=== PATIENT | male | born 1970 | race Caucasian/White ===

== ENCOUNTER 2016-11-04 05:59 | Day surgery (SDC) | payer OTHER ==
[2016-11-04] VITALS (7 sets, daily range): BP systolic 107–137; BP diastolic 61–70
[~2016-11-04] VITALS: Ht 167.6 cm; Wt 80.3 kg
[~2016-11-04 05:59] MED LIST: GINK40TA3 PO; GLUC15002 PO; MAGN250T2 PO; NAPR250T2 PO
[2016-11-04] MEDS ORDERED: CLINDAMYCIN 600 MG in APPROPRIATE DILUENT 1 EA IV ONE (06:15)
[2016-11-04] MEDS ORDERED: LR 1,000 ML IV SCH ×3 (06:15→11:15)
[2016-11-04] MEDS ORDERED: fentaNYL 100 MCG/2 ML INJECTION (J3010) As Ordered ONE ×2 (06:49→10:53)
[2016-11-04] MEDS ORDERED: MIDAZOLAM INJ 2 MG/2 ML VIAL (J2250) As Ordered ONE ×2 (06:49→07:11)
[2016-11-04] MEDS ORDERED: LIDOCAINE 1% MDV INJ 50 ML VIAL As Ordered ONE ×2 (07:10→07:36)
[2016-11-04] MEDS ORDERED: EPINEPHrine 1MG/ML INJ 30ML MD-VIAL As Ordered ONE (07:10)
[2016-11-04] MEDS ORDERED: fentaNYL 250 MCG/5 ML INJECTION (J3010) As Ordered ONE (07:12)
[2016-11-04] MEDS ORDERED: PROPOFOL 200 MG/20 ML VIAL As Ordered ONE ×5 (07:12→10:05)
[2016-11-04] MEDS ORDERED: ROCURONIUM BROMIDE 50 MG/5 ML VIAL As Ordered ONE (07:15)
[2016-11-04] MEDS ORDERED: LIDOCAINE 2% INJ 100 MG/5 ML SDV (FOR ANES.) As Ordered ONE (07:15)
[2016-11-04] MEDS ORDERED: LIDOCAINE 1% MDV 20ML VIAL As Ordered ONE (07:36)
[2016-11-04] MEDS ORDERED: dexameTHASONE 4 MG/ML 1ML VIAL (J1100) As Ordered ONE ×2 (07:54)
[2016-11-04] MEDS ORDERED: METOCLOPRAMIDE INJ 10MG/2ML VIAL (J2765) As Ordered ONE (07:54)
[2016-11-04] MEDS ORDERED: GLYCOPYRROLATE INJ 0.2 MG/ML 2 ML VIAL As Ordered ONE ×2 (08:10)
[2016-11-04] MEDS ORDERED: ONDANSETRON 4MG/2ML VIAL (J2405) As Ordered ONE (08:10)
[2016-11-04] MEDS ORDERED: NEOSTIGMINE 1MG/ML 5 ML SYRINGE (J2710) As Ordered ONE (08:11)
[2016-11-04] MEDS ORDERED: EPINEPHrine INJ 1 MG/ML 1ML VIAL/AMP XX ONE (08:16)
[2016-11-04] MEDS ORDERED: HYDROmorphone HCL 2 MG/ML 1ML VIAL (J1170) As Ordered ONE (08:43)
[2016-11-04] MEDS: fentaNYL 100 MCG/2 ML INJECTION (J3010) IV PRN ×9 (10:55→12:15)
[2016-11-04] MEDS ORDERED: ONDANSETRON 4MG/2ML VIAL (J2405) IV PRN (11:15)
[2016-11-04] MEDS ORDERED: MORPHINE 4 MG/ML 1ML SYRINGE IV PRN (11:15)
[2016-11-04] MEDS ORDERED: PERCOCET 5MG/325MG TAB PO PRN (11:15)
[2016-11-04] MEDS ORDERED: METOCLOPRAMIDE INJ 10MG/2ML VIAL (J2765) IV PRN (11:15)
[2016-11-04] MEDS ORDERED: MEPERIDINE INJ 25 MG/ML VIAL (J2175) IV PRN (11:15)
[2016-11-04] MEDS: PERCOCET 5MG/325MG TAB PO PRN ×4 (11:50→20:45)
--- NOTE | 2016-11-04 12:33 | RO ---
DATE OF PROCEDURE: 11/04/2016 PREOPERATIVE DIAGNOSES: 1. Left shoulder SLAP tear. 2. Left shoulder posterior inferior glenohumeral osteoarthritis. POSTOPERATIVE DIAGNOSES: 1. Left shoulder SLAP tear. 2. Left shoulder posterior inferior glenohumeral osteoarthritis. PROCEDURE: 1. Left shoulder arthroscopic SLAP tear debridement. 2. Left shoulder arthroscopic biceps tenotomy. 3. Left shoulder open sub pectoralis tenodesis. 4. Left shoulder arthroscopic posterior inferior labral repair. SURGEON: Mariela Sims MD HUMID SYSTEM OPERATOR: Mr. Kendrick Gore ANESTHESIA: General endotracheal tube anesthesia. COMPLICATIONS: Were none. FINDINGS: He had a significant degenerative unstable SLAP tear with biceps tendonitis. In addition, there was some full thickness areas of chondromalacia at the inferior and posterior aspect of the glenoid articular surface as well as the humeral head. 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 Exam under anesthesia revealed he actually had a remarkably stable shoulder with full range of motion. DESCRIPTION OF PROCEDURE: Antibiotics were given intravenously preoperatively, then a successful general endotracheal tube anesthetic was established. He was placed in the semi beach chair position and a spider shoulder giraldo was utilized. Exam under anesthesia was then performed. His left upper extremity was then prepped and draped in the usual sterile fashion. Then, after appropriate time-out, a routine diagnostic arthroscopy was performed through a posterior portal. We established an anterior superior rotator interval cannula and explored the joint with findings as noted above. Multiple photographs were taken for documentation of the pathology. Once a thorough assessment had been performed, I debrided the SLAP tear superiorly and then decided on a biceps tenotomy and planned for later open sub pectoralis tenodesis. The posterior inferior labrum was debrided. There were several pieces of loose articular cartilage fragments within the joint, which were debrided away as well back to a good stable rim. There was some upper border subscapularis tendonitis and partial tearing noted as well. This was debrided with a shaver. At this point, I established the anterior superior cannula using a switching stick and the dilator, and then I established an anterior inferior cannula using a spinal needle to localize, then a switching stick and then a 7 mm Twist-In cannula over the dilator. The visualization portal was then changed to anterior superior cannula providing excellent visualization from superiorly to look at the posterior inferior area of the glenoid clearly identifying the significant degenerative labral tearing and separation with the chondromalacia of the posterior inferior aspect of the glenoid. I used the shaver from both front cannulas and the posterior cannulas to debride back the labrum to a good stable rim and debrided the loose pieces of articular cartilage as best as possible. I then was able to get our small elevator and rasp underneath the labrum posteriorly and inferiorly to freshen the surface for later repair and good healing response for planned advancement of the Seema lesion and the labrum and capsule up on to the face of the inferior and posterior glenoid to help unweight this area of the full thickness cartilage loss. Once that had been done, then I established a percutaneous portal for anchor placement at about the 6-o'clock position and placed a suture tack in that position, and then I used the suture lasso to do a capsular tuck into the labrum with 25 degree tight to the right suture lasso. This first suture anchor was then tied using a [place] slider knot, and this was backed up by several half stitches. Then, the remaining limb of para sutures off that inferior anchor was passed in a similar fashion right next to that, just a little bit more superior and posterior, now advancing over towards the 5:30 position, and that was secured in a similar fashion. A second anchor was then placed at about the 3:30 or 4-o'clock position through the percutaneous portal once again, and then both limbs of that suture anchor were tied using [place] slider knots after grasping through some of the posterior capsule and the labrum to bring that tissue onto the face of the more posterior glenoid. Quite satisfied with the way it came out in terms of the good bumper effect and allowing the humeral head to hopefully unweighted off the area of full thickness cartilage loss. Multiple photographs were taken to document this. Finding no other treatable pathology, I then preceded with the open sub pectoralis tenodesis. A small longitudinal incision was made in the axillary fold. Bovie cautery used and then we dissected underneath the pectoralis, identified the biceps tendon, pulled it out of the wound and then I cleared the bicipital groove and placed a G2 Mitek suture anchor, and then I whipstitched the biceps tendon at the myotendinous junction estimating the appropriate length and cut the remaining bit of the tendon free and then dunked the suture to the anchor by pulling on one limb of the sutures, then secured it with several half stitches. We copiously irrigated the wound. All the wounds were closed with interrupted nylon sutures. He was then placed with an abduction pillow brace, and then awakened from general endotracheal tube anesthesia after having tolerated the procedure well, transferred to the recovery room in stable condition. There were no intraoperative complications. Mr. Kendrick Gore was critical to the success of this procedure as it was actually quite difficult to do this labral repair by helping to manipulate the arm as needed, helping to pass sutures, helping to hold the arthroscope as needed, and helping to close the wound and apply the brace in appropriate soft tissue retraction as necessary.
[2016-11-04] MEDS ORDERED: KETOROLAC 30 MG/ML VIAL (J1885) As Ordered ONE (12:47)
[2016-11-04] MEDS ORDERED: KETOROLAC 30 MG/ML VIAL (J1885) IV ONE (13:15)
[2016-11-05] MEDS ORDERED: CelecoXIB 400 MG CAP PO ONE (00:45)
[2016-11-05] MEDS: PERCOCET 5MG/325MG TAB PO PRN ×4 (00:53→12:59)
[2016-11-05 02:00] VITALS: BP 119/58
[2016-11-05 06:00] VITALS: BP 122/64
[2016-11-05] MEDS ORDERED: MOTR200T44 PO (08:37)
[2016-11-05] MEDS ORDERED: oxyCODONE 20 MG CR TAB PO ONE (08:45)
[2016-11-05 10:00] VITALS: BP 104/60
== END 2016-11-05 13:30 | disposition home or self-care (01) ==
LOC: M SDC 05:59 → M MS5PR 13:45 → M SDC 11-05 13:30
PROVIDERS: ATTEND Orthopaedic Surgery
DX: S43.431A Superior glenoid labrum lesion of right shoulder, initial encounter (principal); X58.XXXA Exposure to other specified factors, initial encounter; Y92.89 Other specified places as the place of occurrence of the external cause; Y93.89 Activity, other specified; Y99.8 Other external cause status; M19.011 Primary osteoarthritis, right shoulder; G89.29 Other chronic pain; R06.83 Snoring; Z88.0 Allergy status to penicillin
CPT/HCPCS: 23430; 29806; 29822; 96374; A4649; J1100; J1170; J1885; J2250; J2405; J2710; J2765; J3010